=== PATIENT | female | born 1995 | race Caucasian/White ===

== ENCOUNTER 2017-03-27 19:05 | Emergency (ER) | payer OTHER ==
[~2017-03-27] VITALS: Ht 162.6 cm; Wt 60.1 kg
[2017-03-27 19:09] VITALS: TEMP 36.6; Ht 162.6 cm; Wt 60.1 kg
[2017-03-27] MEDS ORDERED: ALBINS PO (19:22)
[2017-03-27] MEDS ORDERED: BUPRTAB51 PO (19:22)
[2017-03-27] MEDS ORDERED: VNTHFA/IN INH ×2 (19:22→19:38)
[2017-03-27] MEDS ORDERED: HYDR1CAP85 PO (19:22)
[2017-03-27] MEDS ORDERED: QVRINH80 PO (19:22)
[2017-03-27] MEDS ORDERED: ALBUTEROL 0.5% NEB SOLN 2.5 MG/0.5 ML VIAL INH STA (19:26)
[2017-03-27] MEDS ORDERED: ALBUTEROL HFA 8 GM INHALER INH ONE ×2 (19:30→20:20)
[2017-03-27] MEDS ORDERED: ALBINS NEB (19:38)
--- NOTE | 2017-03-27 19:40 | EMERGENCY ROOM VISIT NOTE ---
History First contact with patient: 19:15 Chief Complaint: MEDICATION REFILL REQUEST Stated Complaint: ASTHMA ATTACK History of Present Illness The patient is a 21 year old female who presents to the Emergency Room with complaints of shortness of breath and chest tightness. The patient has mild persistent asthma. Unfortunate the patient does not have any more inhalers and nebulizers. Today she feels some tightness in her chest, shortness of breath, wheezing. She denies chest pain, lightheadedness or dizziness, orthopnea or lower extension edema. She has a dry cough. She does not have fevers, chills, night sweats. Her appetite has been good. She is not having any difficulty with bowel movements or with urination. Review of Systems A 10 point review of systems was negative unless stated above. Past Medical/Surgical History Medical Problems: (1) Asthma Family History Patient reports no known family medical history. Social History Smoking Status: Current Every Day Smoker (1 pack per day) Smokeless Tobacco Use: No Alcohol Use: none Drug Use: none Marital Status: single Housing Status: lives with significant other Occupation Status: student Current/Historical Medications Scheduled Albuterol Sulf (Albuterol Sulfate), 3 ML NEB Q6H Bupropion (Wellbutrin-Xl), 300 MG PO DAILY Hydroxyzine Pamoate (Vistaril), 25 MG PO TID Scheduled PRN Albuterol Hfa (Ventolin Hfa), 2-4 PUFFS INH Q6H PRN for Shortness of Breath Albuterol Hfa (Ventolin Hfa), 1-2 PUFFS INH Q4H PRN for Shortness of Breath Albuterol Sulf (Albuterol Sulfate), 3 ML PO Q6 PRN for Shortness of Breath Beclomethasone Dip (Qvar), 1 PUFF PO DAILY PRN for Shortness of Breath Allergies Effexor Physical Exam Vital Signs Date Time Temp Pulse Resp B/P (MAP) Pulse Ox O2 Delivery O2 Flow Rate FiO2 03/27/17 20:58 106 20 123/72 94 03/27/17 19:09 36.6 100 16 116/68 98 Room Air Pain Rating (0-10): 0 Physical Exam Constitutional: Vital signs as above were reviewed. Eyes: Pupils equal, round, and reactive to light. Extraocular muscles are intact. No proptosis. No photophobia. ENT: Mucous membranes are moist. Oropharynx is clear. No sinus tenderness. Cardiovascular: Heart with a regular rate and rhythm. No pedal edema appreciated. Respiratory: And expiratory wheezing in all lung peter No evidence of respiratory distress: No nasal flaring, no intercostal retraction, no sternocleidal retractions Normal oxygen saturation noted GI: Abdomen soft, nontender, nondistended. Normal active bowel sounds. No abdominal hernias appreciated. No rebound. No guarding. : No CVA tenderness appreciated. Musculoskeletal: No midline cervical or vertebral tenderness. No gross deformities. No bony tenderness. No calf swelling or tenderness. Integumentary: Warm, dry, no rashes appreciated. Neurological: Patient awake, alert, and oriented x 3. Lymph: No cervical lymphadenopathy appreciated. Medical Decision & Procedures ED Course 19:15 - The patient was seen and evaluated by Dr. Agustín Ponce MD [facility] 19:30 - Reviewed case with Dr. Pramod Osborne, ER attending physician Will administer 1 albuterol nebulizer treatment and provide Ventolin inhaler 19:40 - Patient declines nebulizers; will provide 2 puffs Albuterol now and re- assess 20:35 - Re-assessed patient; wheezing improved; told patient to take 1 more puff and I would re-assess 21:00 - Patient reassessed and wheezing improved, patient feeling better Discharge home with instructions completed. Patient discharged in stable condition. Medical Decision The patient is a 21-year-old female with history of mild persistent asthma. She presents with a mild exacerbation, and did not have her medications to treat this at home. Her initial evaluation in the ER was generally benign with the exception of end expiratory wheezing which is consistent with a mild asthma exacerbation in the context of her history. The patient was slightly tachycardic, likely due to some mild shortness of breath but was hemodynamic stable and maintained her oxygenation throughout her hospital course. At no point did she have any evidence of respiratory distress. She was treated with 2 puffs of her inhaler, with prompt reassessment afterwards upon which I noted that she had made a good improvement in her air movement. For cautionary purposes, I gave her 1 additional puffs and then reassessed 15 minutes later and continued to note an improvement. I felt it was safe for her to go home and continue her recovery with her home inhaler as well as a renewal on her nebulizers. She is new to the area and I did recommend to her that she needs a primary care provider to monitor and maintain all of her chronic medications. Prior to departure she is given instructions on when to come back to the emergency department. The patient had an unremarkable hospital course, and was discharged in stable condition. Head Trauma GCS Score: 15 Medication Reconcilliation Current Medication List: was personally reviewed by me Blood Pressure Screening Patient's blood pressure: Normal blood pressure Impression Primary Impression: Mild asthma exacerbation Departure Information Dispostion Home / Self-Care Condition GOOD Prescriptions Albuterol Sulf (Albuterol Sulfate) 2.5 Mg/3 Ml Nebu 3 ML NEB Q6H for 10 Days, #20 VIAL Prov: Agustín Ponce MD 03/27/17 Albuterol Hfa (VENTOLIN HFA) 200 Puffs/68914 Mcg Aers 1-2 PUFFS INH Q4H Y for Shortness of Breath for 30 Days, #1 INHALER Prov: Agustín Ponce MD 03/27/17 Referrals No Doctor, Assigned (PCP) Patient Instructions My [facility] Additional Instructions He came to the emergency room because you're having asthma symptoms but did not have here usual inhalers and nebulizers. We gave you a nebulizer treatment and provided you with a Ventolin inhaler to go home with. We will prescribe you an additional Ventolin inhaler, and a small supply of nebulizers. Because you're new to the area, you need to establish care with a primary care provider who can prescribe and monitor your asthma symptoms. If your symptoms fail to improve, acutely worsen, please seek medical attention immediately by either calling your primary care provider or going to your nearest emergency department. Otherwise, please see your primary care provider within 1 week to ensure that your symptoms continue to improve. It was a pleasure to be involved in your care and we wish you all the best.
[2017-03-27 20:58] VITALS: BP 123/72; PULSE 106; O2SAT 94
--- NOTE | 2017-03-27 23:23 | EMERGENCY ROOM VISIT NOTE ---
History Report prepared by Pat: [employer] Under the Supervision of: Dr. Pramod Osborne D.O. First contact with patient: 19:15 Chief Complaint: MEDICATION REFILL REQUEST Stated Complaint: ASTHMA ATTACK History of Present Illness The patient is a 21 year old female who presents to the Emergency Room with complaints of a mild asthma exacerbation that began recently. She has a past medical history of asthma. The patient is new to the area and notes that she does not have a PCP set up yet. She ran out of her medications and is requesting more. She has mild chest tightness which is typical for her asthma, but no shortness of breath. She notes that this is a very mild flare at best. She denies any abdominal pain, nausea, vomiting, diarrhea, or fevers. She notes that she has a mild cough. Source of History: patient Onset: recently Position: other (Respiratory System) Symptom Intensity: mild Quality: other (Asthma exacerbation) Timing: constant Associated Symptoms: + cough, No fevers, No SOB, No nausea, No vomiting, No abdominal pain, No diarrhea Review of Systems See HPI for pertinent positives & negatives. A total of 10 systems reviewed and were otherwise negative. Past Medical & Surgical Medical Problems: (1) Asthma Family History Patient reports no known family medical history. Social History Smoking Status: Current Every Day Smoker Smokeless Tobacco Use: No Alcohol Use: none Drug Use: none Marital Status: in relationship Current/Historical Medications Scheduled Albuterol Sulf (Albuterol Sulfate), 3 ML NEB Q6H Bupropion (Wellbutrin-Xl), 300 MG PO DAILY Hydroxyzine Pamoate (Vistaril), 25 MG PO TID Scheduled PRN Albuterol Hfa (Ventolin Hfa), 2-4 PUFFS INH Q6H PRN for Shortness of Breath Albuterol Hfa (Ventolin Hfa), 1-2 PUFFS INH Q4H PRN for Shortness of Breath Albuterol Sulf (Albuterol Sulfate), 3 ML PO Q6 PRN for Shortness of Breath Beclomethasone Dip (Qvar), 1 PUFF PO DAILY PRN for Shortness of Breath Allergies Coded Allergies: Venlafaxine (Unverified Allergy, Unknown, NAUSEA/FEVER, 03/27/17) Physical Exam Vital Signs Date Time Temp Pulse Resp B/P (MAP) Pulse Ox O2 Delivery O2 Flow Rate FiO2 10/12/17 20:58 106 20 123/72 94 03/27/17 19:09 36.6 100 16 116/68 98 Room Air Physical Exam GENERAL: Sitting up in bed, alert, well appearing, well nourished, no distress, non-toxic, talking in full sentences EYE EXAM: normal conjunctiva OROPHARYNX: no exudate, no erythema, lips, buccal mucosa, and tongue normal and mucous membranes are moist NECK: supple, no nuchal rigidity, no adenopathy, non-tender LUNGS: Wheezing to the bilateral lung peter. Normal chest wall mechanics HEART: no murmurs, S1 normal and S2 normal ABDOMEN: abdomen soft, non-tender, normo-active bowel sounds, no masses, no rebound or guarding. BACK: Back is symmetrical on inspection and there is no deformity, no midline tenderness, no CVA tenderness. SKIN: no rashes and no bruising UPPER EXTREMITIES: upper extremities are grossly normal. LOWER EXTREMITIES: No pitting edema. Calves equal bilaterally. NEURO EXAM: Normal sensorium. Medical Decision & Procedures ED Course ED COURSE: Vital signs were reviewed and showed tachycardia. The patients medical record was reviewed The above diagnostic studies were performed and reviewed. ED treatments and interventions as stated above. 191: The patient was evaluated in room D6. A complete history and physical examination was performed. 2020: Ordered Albuterol 60 puffs INH 2100: Upon reevaluation, the patient is resting. I discussed my findings with the patient and she understands and agrees with the treatment plan. Based on the patients age, coexisting illnesses, exam and lab findings the decision to treat as an outpatient was made. The patient remained stable while under my care. The patient appeared well at the time of discharge. Medical Decision Differential diagnoses includes but is not limited to pneumonia, bronchitis, COPD/Asthma exacerbation, pneumothorax, pulmonary embolism, congestive heart failure, acute coronary syndrome. Patient is a 21-year-old female who presents to ER for medication refill. Patient was seen independently of the resident. Patient was requesting prescription for no treatments along with an inhaler which she ran out. She notes this feels like a very mild asthma exacerbation. She declined that treatment. Patient family wheezing bilaterally. She felt better. The resident following inhaler treatment. She was discharged to follow-up with PCP. Discussed with Pt concerning signs and symptoms to watch out for. Pt was instructed to follow up with their PCP and discussed with the patient their option to return to the ED at anytime for persistent or worsening symptoms. The appropriate anticipatory guidance and out-patient management, including indications for return to the emergency department, were explained at length to the patient and understood. Medication Reconcilliation Current Medication List: was personally reviewed by me Blood Pressure Screening Patient's blood pressure: Normal blood pressure Blood pressure disposition: Did not require urgent referral Impression Primary Impression: Mild asthma exacerbation Scribe Attestation The scribe's documentation has been prepared under my direction and personally reviewed by me in its entirety. I confirm that the note above accurately reflects all work, treatment, procedures, and medical decision making performed by me. Departure Information Dispostion Home / Self-Care Prescriptions Albuterol Sulf (Albuterol Sulfate) 2.5 Mg/3 Ml Nebu 3 ML NEB Q6H for 10 Days, #20 VIAL Prov: Agustín Ponce MD 03/27/17 Albuterol Hfa (VENTOLIN HFA) 200 Puffs/08082 Mcg Aers 1-2 PUFFS INH Q4H Y for Shortness of Breath for 30 Days, #1 INHALER Prov: Agustín Ponce MD 03/27/17 Referrals No Doctor, Assigned (PCP) Forms HOME CARE DOCUMENTATION FORM, IMPORTANT VISIT INFORMATION, WORK / SCHOOL INSTRUCTIONS Patient Instructions ED Asthma Acute Ch, My [facility] Additional Instructions He came to the emergency room because you're having asthma symptoms but did not have here usual inhalers and nebulizers. We provided you with a Ventolin inhaler. We re-assessed you after taking 2 puffs and given your excellent response, we felt you could be discharged safely back home. We will prescribe you an additional Ventolin inhaler, and a small supply of nebulizers. Because you're new to the area, you need to establish care with a primary care provider who can prescribe and monitor your asthma symptoms. If your symptoms fail to improve, acutely worsen, please seek medical attention immediately by either calling your primary care provider or going to your nearest emergency department. Otherwise, please see your primary care provider within 1 week to ensure that your symptoms continue to improve. It was a pleasure to be involved in your care and we wish you all the best.
== END 2017-03-27 21:00 | disposition home or self-care (01) ==
LOC: C.EDB 19:08 → C.EDD 21:00
DX: Z76.0 Encounter for issue of repeat prescription (principal); J45.901 Unspecified asthma with (acute) exacerbation; F17.210 Nicotine dependence, cigarettes, uncomplicated; Z79.899 Other long term (current) drug therapy

== ENCOUNTER → 2017-07-09 | Outpatient (CLI) | payer OTHER ==
[~2017-07-09] MED LIST: ALBINS PO; BUPRTAB51 PO; HYDR1CAP85 PO; QVRINH80 PO; VNTHFA/IN INH
[2017-07-09 16:39] LABS: BASO % 0.1 %; BASO ABS # 0.01 K/uL (0-0.2); EOS % 4.3 %; HEMATOCRIT 34.8 % (37-47); HEMOGLOBIN 12.4 g/dL (12.0-16.0); IG# 0.02 K/uL (0.00-0.02); LYMPH % 21.5 %; LYMPH ABS # 2.01 K/uL (1.2-3.4); MEAN CELL VOLUME 87.4 fL (80-100); MEAN CORPUSCULAR HEMOGLOBIN 31.2 pg (25-34); MEAN CORPUSCULAR HGB CONC 35.6 g/dl (32-36); MEAN PLATELET VOLUME 9.6 fL (7.4-10.4); MONO ABS # 0.37 K/uL (0.11-0.59); NEUT % 69.9 %; NEUT ABS # 6.55 K/uL (1.4-6.5); PLATELET COUNT 278 K/uL (130-400); RED CELL DISTRIBUTION WIDTH CV 12.9 % (11.5-14.5); RED CELL DISTRIBUTION WIDTH SD 41.6 fL (36.4-46.3); WHITE BLOOD COUNT 9.36 K/uL (4.8-10.8)
== END | disposition home or self-care (01) ==
LOC: C.LAB1850 15:23
PROVIDERS: ATTEND Obstetrics & Gynecology
DX: Z34.02 Encounter for supervision of normal first pregnancy, second trimester (principal)

== ENCOUNTER → 2017-07-09 | Outpatient (CLI) | payer OTHER | END | disposition home or self-care (01) | LOC: C.PAPS 09:47 | PROVIDERS: ATTEND Obstetrics & Gynecology | DX: Z34.02 Encounter for supervision of normal first pregnancy, second trimester (principal); Z12.4 Encounter for screening for malignant neoplasm of cervix; R87.610 Atypical squamous cells of undetermined significance on cytologic smear of cervix (ASC-US); Z11.51 Encounter for screening for human papillomavirus (HPV) ==

== ENCOUNTER 2017-08-18 03:46 | Emergency (ER) | payer OTHER ==
[~2017-08-18] VITALS: Ht 162.6 cm; Wt 69.8 kg
[2017-08-18 03:50] VITALS: TEMP 36.3; Ht 162.6 cm; Wt 69.8 kg
[2017-08-18] MEDS ORDERED: SODIUM CHLORIDE 0.9% 1000ML 1,000 ML IV STA (04:04)
[2017-08-18] MEDS ORDERED: ONDANSETRON INJ 2 MG/ML 2 ML VIAL IV STA ×2 (04:04→05:44)
[2017-08-18] MEDS ORDERED: MoRPHine SULFATE 4 MG/ML 1 ML CARP\\VIAL IV STA ×2 (04:04→05:44)
[2017-08-18] MEDS ORDERED: DIPH25CA5 PO (04:30)
[2017-08-18 04:33] LABS: BASO % 0.1 %; BASO ABS # 0.01 K/uL (0-0.2); EOS % 1.2 %; EOS ABS # 0.15 K/uL (0-0.5); HEMATOCRIT 30.6 % (37-47); IG# 0.07 K/uL (0.00-0.02); LYMPH % 12.7 %; LYMPH ABS # 1.54 K/uL (1.2-3.4); MEAN CELL VOLUME 88.2 fL (80-100); MEAN CORPUSCULAR HEMOGLOBIN 31.7 pg (25-34); MEAN CORPUSCULAR HGB CONC 35.9 g/dl (32-36); MEAN PLATELET VOLUME 8.7 fL (7.4-10.4); MONO % 3.2 %; MONO ABS # 0.39 K/uL (0.11-0.59); NEUT % 82.2 %; NEUT ABS # 9.94 K/uL (1.4-6.5); PLATELET COUNT 219 K/uL (130-400); RED CELL DISTRIBUTION WIDTH CV 13.1 % (11.5-14.5); RED CELL DISTRIBUTION WIDTH SD 41.9 fL (36.4-46.3)
[2017-08-18 05:05] LABS: ALBUMIN 3.2 gm/dl (3.4-5.0); ALT/SGPT 17 U/L (12-78); AST/SGOT 9 U/L (15-37); BLOOD UREA NITROGEN 10 mg/dl (7-18); CALCIUM 8.8 mg/dl (8.5-10.1); CARBON DIOXIDE 26 mmol/L (21-32); CREATININE 0.62 mg/dl (0.60-1.20); GLUCOSE 106 mg/dl (70-99); POTASSIUM 3.8 mmol/L (3.5-5.1); SODIUM 139 mmol/L (136-145)
[2017-08-18 05:08] LABS: ALKALINE PHOSPHATASE 65 U/L (45-117); TOTAL PROTEIN 6.6 gm/dl (6.4-8.2)
--- NOTE | 2017-08-18 06:51 | DIAGNOSTIC IMAGING REPORT ---
(RENAL)RETROPERITON COMP HISTORY: 21 years-old Female left flank pain, ? stone acute left-sided flank pain with COMPARISON: Pelvic ultrasound 07/15/2017 TECHNIQUE: Multiple real-time sonographic images of the kidneys and urinary bladder were obtained assessing grayscale appearance and color flow FINDINGS: The right kidney measures 10.5 x 5.1 x 6.3 cm and demonstrates mild hydronephrosis without obstructing calculus or lesion identified. Cortical medullary differentiation is preserved. The lower pole is somewhat visualized secondary to obscuring bowel gas. The left kidney measures 13.0 x 6.8 x 6.3 cm and also demonstrates mild hydronephrosis with multiple shadowing calculi seen about the left kidney, largest of which measures 6 mm within the inferior pole. There is a complex cystic lesion within internal septations involving the interpolar left kidney measuring up to 1.1 x 1.1 x 1.6 cm. Mobile echogenic debris is noted throughout the urinary bladder lumen. Bilateral ureteral jets are seen. Intrauterine gestation is partially imaged with head causing mass effect upon the urinary bladder. The patient is reportedly 22 weeks . IMPRESSION: 1. Intrauterine gestation partially imaged with head causing mass effect upon the urinary bladder. 2. Urinary bladder is diffusely filled with echogenic mobile debris. Correlate with urinalysis to exclude cystitis. 3. Mild bilateral hydronephrosis with multiple nonobstructing calculi seen within the left kidney measuring up to 6 mm. The above report was generated using voice recognition software. It may contain grammatical, syntax or spelling errors. Electronically signed by: Steve Ash M.D. 08/18/2017 6:49 AM Dictated Date/Time: 08/18/2017 6:45 AM
--- NOTE | 2017-08-18 06:53 | EMERGENCY ROOM VISIT NOTE ---
History First contact with patient: 03:56 Chief Complaint: FLANK PAIN Stated Complaint: SEVERE LFT SIDE PAIN,VOMITING,23WKS L&D C History of Present Illness The patient is a 21 year old female who presents to the Emergency Room with complaints of severe sudden onset of left flank pain that radiates to her groin for the past 2 hours that woke her up out of sleep ranging in severity currently 7 out of 10. Nothing makes it better or worse. She took Advil with some improvement of symptoms. She is 23 weeks . She sees edwin [facility]. This is her first . No comp occasions of the . Patient does smoke. No alcohol or drug use. Patient denies chest pain, dyspnea , fever, chills, vomiting, diarrhea, problems, vaginal discharge or bleeding. Patient states she can feel the baby move. Review of Systems An 10 system review of systems was completed with positives and pertinent negatives listed in the HPI. Past Medical/Surgical History Medical Problems: (1) Asthma Kidney stones Family History Patient reports no known family medical history. Social History Smoking Status: Never Smoker Alcohol Use: none Drug Use: none Marital Status: in relationship Housing Status: lives with significant other Current/Historical Medications Scheduled Diphenhydramine Hcl (Benadryl), 25 MG PO DAILY Scheduled PRN Albuterol Hfa (Ventolin Hfa), 2-4 PUFFS INH Q6H PRN for Shortness of Breath Albuterol Sulf (Albuterol Sulfate), 3 ML PO Q6 PRN for Shortness of Breath Physical Exam Vital Signs Date Time Temp Pulse Resp B/P (MAP) Pulse Ox O2 Delivery O2 Flow Rate FiO2 08/18/17 05:46 106 24 128/80 100 Room Air 08/18/17 03:50 36.3 106 20 120/78 97 Room Air Physical Exam VITALS: Vitals are noted on the nurse's note and reviewed by myself. Vital signs stable. GENERAL: Pleasant female, in no acute distress, nondiaphoretic, well-developed well-nourished. SKIN: Capillary reflex less than 2 seconds. HEENT: Normocephalic. PERRLA. EOMI. Nares patent. Mucous membranes moist. Neck is supple without nuchal rigidity. HEART: Regular rate and rhythm without murmurs gallops or rubs. LUNGS: Clear to auscultation bilaterally without wheezes, rales or rhonchi. No retractions or accessory muscle use. ABDOMEN: Positive bowel sounds x 4. Normal tympanic percussion. Soft, 23 weeks , no CVA tenderness, nontender, without masses or organomegaly. Gosnalez sign negative. No guarding or rebound tenderness. MUSCULOSKELETAL: No gross musculoskeletal defects. No pedal edema. No calf tenderness. NEURO: Patient was alert and oriented to person place and time. Normal sensation to light and sharp touch. No focal neurological deficits. Medical Decision & Procedures Laboratory Results 08/18/17 04:20 Red Blood Count 3.47, Mean Corpuscular Volume 88.2, Mean Corpuscular Hemoglobin 31.7, Mean Corpuscular Hemoglobin Concent 35.9, Mean Platelet Volume 8.7, Neutrophils (%) (Auto) 82.2, Lymphocytes (%) (Auto) 12.7, Monocytes (%) (Auto) 3.2, Eosinophils (%) (Auto) 1.2, Basophils (%) (Auto) 0.1, Neutrophils # (Auto) 9.94, Lymphocytes # (Auto) 1.54, Monocytes # (Auto) 0.39, Eosinophils # (Auto) 0.15, Basophils # (Auto) 0.01 08/18/17 04:20 Test 08/18/17 04:20 08/18/17 06:00 White Blood Count 12.10 K/uL (4.8-10.8) Red Blood Count 3.47 M/uL (4.2-5.4) Hemoglobin 11.0 g/dL (12.0-16.0) Hematocrit 30.6 % (37-47) Mean Corpuscular Volume 88.2 fL (80-100) Mean Corpuscular Hemoglobin 31.7 pg (25-34) Mean Corpuscular Hemoglobin Concent 35.9 g/dl (32-36) Platelet Count 219 K/uL (130-400) Mean Platelet Volume 8.7 fL (7.4-10.4) Neutrophils (%) (Auto) 82.2 % Lymphocytes (%) (Auto) 12.7 % Monocytes (%) (Auto) 3.2 % Eosinophils (%) (Auto) 1.2 % Basophils (%) (Auto) 0.1 % Neutrophils # (Auto) 9.94 K/uL (1.4-6.5) Lymphocytes # (Auto) 1.54 K/uL (1.2-3.4) Monocytes # (Auto) 0.39 K/uL (0.11-0.59) Eosinophils # (Auto) 0.15 K/uL (0-0.5) Basophils # (Auto) 0.01 K/uL (0-0.2) RDW Standard Deviation 41.9 fL (36.4-46.3) RDW Coefficient of Variation 13.1 % (11.5-14.5) Immature Granulocyte % (Auto) 0.6 % Immature Granulocyte # (Auto) 0.07 K/uL (0.00-0.02) Anion Gap 7.0 mmol/L (3-11) Est Creatinine Clear Calc Drug Dose 136.5 ml/min Estimated GFR () 148.3 Estimated GFR (Non- 128.0 BUN/Creatinine Ratio 16.0 (10-20) Calcium Level 8.8 mg/dl (8.5-10.1) Total Bilirubin 0.3 mg/dl (0.2-1) Direct Bilirubin < 0.1 mg/dl (0-0.2) Aspartate Amino Transf (AST/SGOT) 9 U/L (15-37) Alanine Aminotransferase (ALT/SGPT) 17 U/L (12-78) Alkaline Phosphatase 65 U/L (45-117) Total Protein 6.6 gm/dl (6.4-8.2) Albumin 3.2 gm/dl (3.4-5.0) Urine Color YELLOW Urine Appearance CLEAR (CLEAR) Urine pH 7.5 (4.5-7.5) Urine Specific [place] 1.006 (1.000-1.030) Urine Protein NEG (NEG) Urine Glucose (UA) NEG (NEG) Urine Ketones NEG (NEG) Urine Occult Blood 1+ (NEG) Urine Nitrite NEG (NEG) Urine Bilirubin NEG (NEG) Urine Urobilinogen NEG (NEG) Urine Leukocyte Esterase NEG (NEG) Urine WBC (Auto) 1-5 /hpf (0-5) Urine RBC (Auto) 0-4 /hpf (0-4) Urine Hyaline Casts (Auto) 1-5 /lpf (0-5) Urine Epithelial Cells (Auto) >30 /lpf (0-5) Urine Bacteria (Auto) NEG (NEG) Medications Administered Medications (Trade) Dose Ordered Sig/Hugo Route Start Time Stop Time Status Last Admin Dose Admin Morphine Sulfate (MoRPHine SULFATE INJ) 4 mg NOW STAT IV 08/18/17 04:04 08/18/17 04:06 DC 08/18/17 04:34 4 MG Ondansetron HCl (Zofran Inj) 4 mg NOW STAT IV 08/18/17 04:04 08/18/17 04:06 DC 08/18/17 04:33 4 MG Sodium Chloride 1,000 ml @ 999 mls/hr Q1H1M STAT IV 08/18/17 04:04 08/18/17 05:04 DC 08/18/17 04:33 999 MLS/HR Morphine Sulfate (MoRPHine SULFATE INJ) 4 mg NOW STAT IV 08/18/17 05:44 08/18/17 05:45 DC 08/18/17 05:50 4 MG Ondansetron HCl (Zofran Inj) 4 mg NOW STAT IV 08/18/17 05:44 08/18/17 05:45 DC 08/18/17 05:50 4 MG ED Course Prior records/ancillary studies reviewed. Triage Nursing notes reviewed. Additional history obtained from the family. The patient's history was concerning for left flank pain who is currently 23 weeks Differential diagnosis: Etiologies such as complication, renal colic, appendicitis, diverticulitis, mesenteric ischemia, aortic pathology, infections, inflammatory bowel disease, PUD, biliary pathology, UTI, as well as others were entertained. Physical examination findings: As above. ER treatment provided: Morphine, Zofran, IV fluids On reassessment the patient felt better. Diagnostic interpretation by me: The labs revealed mild leukocytosis. Urinalysis revealed no concerns for infection First urinalysis appeared contaminated so a cath urine was done Imaging studies: US RENAL: Additional history, 22 WKS PREG PER PT. Mild bilateral hydronephrosis. Multiple left renal calculi. Largest 6 mm in the left lower pole. Complex left renal cyst, 1.6 cm. No obvious distal ureteral calculus visualized. Normal ureteral jets visualized bilaterally. Mobile debris within the urinary bladder. Correlate for infection. Radiologist: Maximo Michelle M.D. Consultation: A consultation was placed with the OB, Dr Parr. The case was discussed and diagnostics were reviewed. He recommends discharge with outpatient follow-up and states no need for monitoring. It appears that the patient has left flank pain with unclear etiology. Patient had no real blood on cath urinalysis. Ultrasound showed no obvious signs of obstructing stone. Patient had no complaints with her . Patient had normal movement on limited ultrasound in the ER per my interpretation. Patient had normal heart tones. Patient had no vaginal bleeding or concerns with her . Patient was advised to take the medicines as directed, rest, stay well-hydrated to follow-up with OB in a day or 2 here in the ER sooner for abdominal pain, fevers, vomiting, worsening signs or symptoms or as needed. By the evaluation outlined above emergent etiologies such as appendicitis, diverticulitis, mesenteric ischemia, aortic pathology, inflammatory bowel disease, PUD, biliary pathology, as well as others were deemed relatively unlikely. The pt informed about the findings as listed above. All questions were answered and pleased with the treatment. Return instructions were outlined and the patient was discharged in stable condition. Referral: The patient was referred back to their EMT DISPATCHER and primary care physician for follow-up in 2 to 3 days for a recheck of the current condition. Case reviewed with my attending The chart was completed utilizing [employer] Speech voice recognition software. Grammatical errors, random word insertions, pronoun errors, and incomplete sentences are an occassional consequence of this system due to software limitations, ambient noise, and hardware issues. Any formal questions or concerns about the content, text, or information contained within the body of this dictation should be directly addressed to the physician plant attendant or assistant operator for clarification. Medical Decision As above Medication Reconcilliation Current Medication List: was personally reviewed by me Blood Pressure Screening Patient's blood pressure: Normal blood pressure Impression Primary Impression: Left flank pain Departure Information Dispostion Home / Self-Care Condition GOOD Referrals No Doctor, Assigned (PCP) Patient Instructions My [facility] Additional Instructions DO NOT drive, drink alcohol, operate machinery, or perform dangerous activities today. You were given medications in the ER that can affect your ability to safely function or operate a vehicle. Zofran 4 mg: Take one every six hours as needed for nausea. Avoid alcohol, operating machinery or dangerous equipment, working on ladders or roofs, DRIVING , or situations where being under the influence may be dangerous. Acetaminophen(Tylenol) may be used for fever or pain. Use 1000mg every six hours as needed. Avoid using more than 3000mg in a 24 hour period. Rest and drink plenty of fluids as tolerated. Slow sips of water or sports drinks are recommended instead of large amounts all at once. Continue current medications. Once your stomach is settled start with a clear liquid diet (jello, soup broth, etc.) and then advance as tolerated. You should avoid full, heavy meals for about 24 hrs from the time your symptoms resolved. Return to the ER immediately for worsening or persistent abdominal/back pain, problems with your , vomiting, fevers, worsening of your condition, or as needed. Follow up with your primary physician and/or EMT DISPATCHER within 1-2 days for a recheck of the current condition.
[2017-08-18] MEDS ORDERED: ONDANSETRON HOME PACK 4MG OD TAB PO ONE (07:00)
[2017-08-18 07:05] VITALS: BP 140/67; PULSE 84; O2SAT 98
== END 2017-08-18 07:12 | disposition home or self-care (01) ==
LOC: C.EDB 03:47
DX: R10.9 Unspecified abdominal pain (principal); O26.892 Other specified pregnancy related conditions, second trimester; O99.512 Diseases of the respiratory system complicating pregnancy, second trimester; J45.909 Unspecified asthma, uncomplicated; Z3A.23 23 weeks gestation of pregnancy; Z87.442 Personal history of urinary calculi

== ENCOUNTER 2017-09-06 20:48 | Emergency (ER) | payer OTHER ==
[~2017-09-06] VITALS: Ht 162.6 cm; Wt 71.3 kg
[~2017-09-06 20:48] MED LIST changes: -BUPRTAB51 PO; +DIPH25CA5 PO; -HYDR1CAP85 PO; -QVRINH80 PO
[2017-09-06 20:52] VITALS: TEMP 36.7; Ht 162.6 cm; Wt 71.3 kg
[2017-09-06] MEDS ORDERED: SODIUM CHLORIDE 0.9% 1000ML 1,000 ML IV STA (21:04)
[2017-09-06 21:28] LABS: BASO % 0.1 %; BASO ABS # 0.01 K/uL (0-0.2); EOS % 2.3 %; EOS ABS # 0.28 K/uL (0-0.5); HEMATOCRIT 29.8 % (37-47); HEMOGLOBIN 10.5 g/dL (12.0-16.0); IG# 0.02 K/uL (0.00-0.02); LYMPH % 12.1 %; LYMPH ABS # 1.49 K/uL (1.2-3.4); MEAN CELL VOLUME 89.2 fL (80-100); MEAN CORPUSCULAR HEMOGLOBIN 31.4 pg (25-34); MEAN CORPUSCULAR HGB CONC 35.2 g/dl (32-36); MEAN PLATELET VOLUME 8.6 fL (7.4-10.4); MONO ABS # 0.74 K/uL (0.11-0.59); NEUT % 79.3 %; NEUT ABS # 9.81 K/uL (1.4-6.5); PLATELET COUNT 257 K/uL (130-400); RED CELL DISTRIBUTION WIDTH CV 12.9 % (11.5-14.5); RED CELL DISTRIBUTION WIDTH SD 41.6 fL (36.4-46.3); WHITE BLOOD COUNT 12.35 K/uL (4.8-10.8)
[2017-09-06] MEDS ORDERED: FLUT1INH INH (21:29)
[2017-09-06] MEDS ORDERED: TAMS0.4C38 PO (21:29)
[2017-09-06 21:59] LABS: ALBUMIN 3.1 gm/dl (3.4-5.0); ALT/SGPT 23 U/L (12-78); BLOOD UREA NITROGEN 12 mg/dl (7-18); CALCIUM 8.6 mg/dl (8.5-10.1); CARBON DIOXIDE 24 mmol/L (21-32); CREATININE 0.86 mg/dl (0.60-1.20); GLUCOSE 91 mg/dl (70-99); LIPASE 114 U/L (73-393); POTASSIUM 3.6 mmol/L (3.5-5.1); SODIUM 137 mmol/L (136-145)
--- NOTE | 2017-09-06 22:00 | DIAGNOSTIC IMAGING REPORT ---
(RENAL)RETROPERITON COMP HISTORY: eval for hydro COMPARISON: 08/18/2017 FINDINGS: Right kidney: Maximum dimension 12.4 cm. Mild hydronephrosis. No change in the prior study. Normal corticomedullary differentiation and cortical thickness. Left kidney: Moderate hydronephrosis. Maximum dimension 15 cm. 1.9 cm septated cyst upper pole. 5 mm nonobstructing mid pole calcification. Normal corticomedullary differentiation and cortical thickness. Bladder: No bladder wall thickening. The bilateral ureteral jets were identified. IMPRESSION: 1. Moderate left hydronephrosis. 2. Mild right hydronephrosis. 3. Nonobstructing calcification mid pole left kidney with an unchanging interpolar cyst. 4. No change from the prior study. The above report was generated using voice recognition software. It may contain grammatical, syntax or spelling errors. Electronically signed by: Yuriy Joe M.D. 09/06/2017 9:58 PM Dictated Date/Time: 09/06/2017 9:56 PM
[2017-09-06 22:02] LABS: ALKALINE PHOSPHATASE 82 U/L (45-117); AST/SGOT 12 U/L (15-37); TOTAL PROTEIN 6.8 gm/dl (6.4-8.2)
[2017-09-06] MEDS ORDERED: MoRPHine SULFATE 4 MG/ML 1 ML CARP\\VIAL IV STA (22:05)
[2017-09-06] MEDS ORDERED: CEFTRIAXONE SOD INJ 1 GM ADDVIAL IV STA (23:03)
[2017-09-06] MEDS ORDERED: LACTATED RINGER'S 1000ML 1,000 ML IV SCH (23:41)
[2017-09-06] MEDS ORDERED: IV FLUIDS COMPLETED PRN (23:45)
[2017-09-06] MEDS ORDERED: DiphenhydrAMINE HCL 50 MG/ML VIAL IV STA (23:51)
[2017-09-07] MEDS ORDERED: OXYCODONE/ACETAMINOPHEN 5-325 TAB PO PRN
[2017-09-07] MEDS ORDERED: CEFTRIAXONE SOD INJ 1 GM in DEXTROSE 5% ADD-VANTAGE 50ML 50 ML IV SCH ×2
[2017-09-07] MEDS ORDERED: ONDANSETRON INJ 2 MG/ML 2 ML VIAL IV PRN
[2017-09-07] MEDS ORDERED: CEPH500C PO (00:01)
[2017-09-07 00:12] VITALS: BP 133/95; PULSE 112; O2SAT 98
[2017-09-07] MEDS ORDERED: CEPHALEXIN 500MG HOME PACK 1 EA BTL PO ONE (00:15)
--- NOTE | 2017-09-07 00:44 | EMERGENCY ROOM VISIT NOTE ---
History Report prepared by Pat: Davonte Rodas Under the Supervision of: Dr. Adolph Holloway M.D. First contact with patient: 20:56 Chief Complaint: KIDNEY STONE Stated Complaint: BURNING W/URINATION,BACK PAIN- HX KIDNEY STONE History of Present Illness The patient is a 21 year old female who is 26-weeks who presents to the Emergency Room with complaints of worsening left flank pain that started almost 3 weeks ago. She states that she was here on the of this month for the same left flank pain. The patient says that she then went to [facility] in [place] around 2 weeks ago and had a urology consult, and had an ultrasound which showed stones in both kidneys. The patient states that she was not admitted at [place]. She states that she was given Flomax, and was put on Hydrocodone and amoxicillin 800 mg. The patient says that she did not start taking the antibiotics until yesterday when she developed urinary symptoms. She adds that she was told that she had a lot of bacteria in her urine, but she did not feel any symptoms of a UTI at that time. The patient says that her left flank pain calmed down a bit ever since being in [place], but starting this morning the pain came back and has worsened. She describes the pain as a throbbing and aching. The patient adds that starting yesterday, she has been experiencing an increased urgency and frequency of urination, as well as burning with urination. She notes that she had been vomiting when she was seen here earlier this month, but started vomiting a lot last week. The patient says that she has not felt feverish. She denies any vaginal bleeding or problems with her baby. She does feel the baby move. Source of History: patient Onset: Almost 3 weeks ago Position: other (left flank) Quality: ache, other (throbbing) Timing: worsening Associated Symptoms: + vomiting, + urinary symptoms, No fevers Note: Associated symptoms: Denies vaginal discharge, problems with baby. Review of Systems See HPI for pertinent positives & negatives. A total of 10 systems reviewed and were otherwise negative. Past Medical & Surgical Medical Problems: (1) Asthma (2) Kidney stone complicating Family History Patient reports no known family medical history. Social History Smoking Status: Current Every Day Smoker Alcohol Use: none Drug Use: none Marital Status: in relationship Housing Status: lives with significant other Current/Historical Medications Scheduled Cephalexin Monohydrate (Keflex), 500 MG PO QID Diphenhydramine Hcl (Benadryl), 25 MG PO DAILY Fluticasone Furoate-Vilanterol (Breo Ellipta), 1 PUFF INH DAILY Tamsulosin Hcl (Flomax), 1 CAP PO DAILY Scheduled PRN Albuterol Hfa (Ventolin Hfa), 2-4 PUFFS INH Q6H PRN for Shortness of Breath Albuterol Sulf (Albuterol Sulfate), 3 ML PO Q6 PRN for Shortness of Breath Allergies Coded Allergies: Venlafaxine (Verified Allergy, Intermediate, NAUSEA/FEVER, 09/06/17) Physical Exam Vital Signs Date Time Temp Pulse Resp B/P (MAP) Pulse Ox O2 Delivery O2 Flow Rate FiO2 09/06/17 22:24 115 132/75 98 Room Air 09/06/17 20:52 36.7 134 20 123/73 99 Room Air Physical Exam Constitutional: Vital signs reviewed. Eyes: Pupils are equal round reactive to light. Conjunctiva are noninjected. ENT: Pharynx is clear without erythema or exudate. Mucous membranes are dry. Neck supple without meningeal signs. Respiratory: Clear to auscultation bilaterally. Breath sounds are equal bilaterally. Cardiovascular: Regular rate and rhythm. No rubs or gallops. GI: Gravid and nontender. Bowel sounds are present. Musculoskeletal: No peripheral edema. No CVA tenderness. Integumentary: No cyanosis. Neurological: The patient is awake and alert. No focal deficits. Psychiatric: Normal affect. Medical Decision & Procedures ER Provider Diagnostic Interpretation: US results as stated below per my review and radiologist interpretation. (RENAL)RETROPERITON COMP HISTORY: eval for hydro COMPARISON: 08/18/2017 FINDINGS: Right kidney: Maximum dimension 12.4 cm. Mild hydronephrosis. No change in the prior study. Normal corticomedullary differentiation and cortical thickness. Left kidney: Moderate hydronephrosis. Maximum dimension 15 cm. 1.9 cm septated cyst upper pole. 5 mm nonobstructing mid pole calcification. Normal corticomedullary differentiation and cortical thickness. Bladder: No bladder wall thickening. The bilateral ureteral jets were identified. IMPRESSION: 1. Moderate left hydronephrosis. 2. Mild right hydronephrosis. 3. Nonobstructing calcification mid pole left kidney with an unchanging interpolar cyst. 4. No change from the prior study. Laboratory Results 09/06/17 21:20 Red Blood Count 3.34, Mean Corpuscular Volume 89.2, Mean Corpuscular Hemoglobin 31.4, Mean Corpuscular Hemoglobin Concent 35.2, Mean Platelet Volume 8.6, Neutrophils (%) (Auto) 79.3, Lymphocytes (%) (Auto) 12.1, Monocytes (%) (Auto) 6.0, Eosinophils (%) (Auto) 2.3, Basophils (%) (Auto) 0.1, Neutrophils # (Auto) 9.81, Lymphocytes # (Auto) 1.49, Monocytes # (Auto) 0.74, Eosinophils # (Auto) 0.28, Basophils # (Auto) 0.01 09/06/17 21:20 Test 09/06/17 21:20 White Blood Count 12.35 K/uL (4.8-10.8) Red Blood Count 3.34 M/uL (4.2-5.4) Hemoglobin 10.5 g/dL (12.0-16.0) Hematocrit 29.8 % (37-47) Mean Corpuscular Volume 89.2 fL (80-100) Mean Corpuscular Hemoglobin 31.4 pg (25-34) Mean Corpuscular Hemoglobin Concent 35.2 g/dl (32-36) Platelet Count 257 K/uL (130-400) Mean Platelet Volume 8.6 fL (7.4-10.4) Neutrophils (%) (Auto) 79.3 % Lymphocytes (%) (Auto) 12.1 % Monocytes (%) (Auto) 6.0 % Eosinophils (%) (Auto) 2.3 % Basophils (%) (Auto) 0.1 % Neutrophils # (Auto) 9.81 K/uL (1.4-6.5) Lymphocytes # (Auto) 1.49 K/uL (1.2-3.4) Monocytes # (Auto) 0.74 K/uL (0.11-0.59) Eosinophils # (Auto) 0.28 K/uL (0-0.5) Basophils # (Auto) 0.01 K/uL (0-0.2) RDW Standard Deviation 41.6 fL (36.4-46.3) RDW Coefficient of Variation 12.9 % (11.5-14.5) Immature Granulocyte % (Auto) 0.2 % Immature Granulocyte # (Auto) 0.02 K/uL (0.00-0.02) Urine Color YELLOW Urine Appearance TURBID (CLEAR) Urine pH 8.0 (4.5-7.5) Urine Specific [place] 1.020 (1.000-1.030) Urine Protein NEG (NEG) Urine Glucose (UA) NEG (NEG) Urine Ketones NEG (NEG) Urine Occult Blood NEG (NEG) Urine Nitrite NEG (NEG) Urine Bilirubin NEG (NEG) Urine Urobilinogen NEG (NEG) Urine Leukocyte Esterase SMALL (NEG) Urine WBC (Auto) >30 /hpf (0-5) Urine RBC (Auto) 0-4 /hpf (0-4) Urine Hyaline Casts (Auto) 5-10 /lpf (0-5) Urine Epithelial Cells (Auto) >30 /lpf (0-5) Urine Bacteria (Auto) NEG (NEG) Urine Renal Epithelial Cells 0-5 /lpf (0-5) Urine Crystals CALCIUM OXALATE (NONE Anion Gap 6.0 mmol/L (3-11) Est Creatinine Clear Calc Drug Dose 99.4 ml/min Estimated GFR () 111.1 Estimated GFR (Non- 95.9 BUN/Creatinine Ratio 14.3 (10-20) Calcium Level 8.6 mg/dl (8.5-10.1) Total Bilirubin 0.2 mg/dl (0.2-1) Direct Bilirubin < 0.1 mg/dl (0-0.2) Aspartate Amino Transf (AST/SGOT) 12 U/L (15-37) Alanine Aminotransferase (ALT/SGPT) 23 U/L (12-78) Alkaline Phosphatase 82 U/L (45-117) Total Protein 6.8 gm/dl (6.4-8.2) Albumin 3.1 gm/dl (3.4-5.0) Lipase 114 U/L (73-393) Laboratory results as reviewed by me. Medications Administered Medications (Trade) Dose Ordered Sig/Hugo Route Start Time Stop Time Status Last Admin Dose Admin Sodium Chloride 1,000 ml @ 999 mls/hr Q1H1M STAT IV 09/06/17 21:04 09/06/17 22:04 DC 09/06/17 21:22 999 MLS/HR Morphine Sulfate (MoRPHine SULFATE INJ) 4 mg NOW STAT IV 09/06/17 22:05 09/06/17 22:06 DC 09/06/17 22:10 4 MG Ceftriaxone Sodium (Rocephin Inj) 1 gm NOW STAT IV 09/06/17 23:03 09/06/17 23:04 DC 09/06/17 23:09 1 GM Cephalexin Monohydrate (Keflex 500MG Home Pack) 1 homepack NOW ONCE PO 09/07/17 00:15 09/07/17 00:16 DC 09/07/17 00:11 1 HOMEPACK ED Course 2056: The patient was evaluated in room C8. A complete history and physical exam was performed. 2103: NSS 1000 ml @ 999 mls/hr IV. 2203: The patient is requesting pain medicine. 5: Morphine Sulfate Inj 4 mg IV. 2255: I reevaluated the patient and she is feeling better now. 2300: I discussed the patient with Dr[facility] - he said he agrees with admission here and conservative management with IV antibiotics and fluids. 2303: Rocephin Inj 1 gm IV. 2304: I reevaluated the patient and she is resting. I discussed the results with her. 2311: I spoke with Dr. Dafne Hernández [facility] resident rate examiner. We discussed the patient and her results. The patient will be further evaluated by Anabella Chappell. 2334: I discussed the patient with Dr. Shiva Hernández [facility] OBGYN - she will evaluate the patient for further treatment. 2345: I reevaluated the patient and she is having a panic attack. She has concern about staying in the hospital by herself, so I had a long discussion with her and her boyfriend, and discussed the risks of leaving against medical advice. Her boyfriend is trying to convince her to stay. 2351: Benadryl Inj 25 mg IV. 2357: I reevaluated the patient and she will leave against medical advice. She understands the risks to herself as well as the baby. Dr. Shannon recommended Keflex as an outpatient antibiotic. She looked at some data showing equivalence with Rocephin in terms of treatment. 0001: Cephalexin 500MG Home Pack 1 homepack PO. Medical Decision This is a 21-year-old female who presents with flank pain and urinary symptoms. Differential diagnosis includes obstructive uropathy, renal colic, UTI, pyelonephritis, dehydration. I did perform a limited focused review of portions of the patient's old chart on the electronic medical record. The patient came in with left flank pain on the , and was 23 weeks at the time. She had an ultrasound which showed bilateral mild hydronephrosis and a left renal calculus. No ureteral calculi were noted. The urine culture from August 18 did not show any specific organisms. I did evaluate the patient as noted above. IV access was established. I did treat the patient with normal saline IV. Initially she did not wish to have any pain medication but later requested some and was given morphine IV. I did order and personally review the patient's urinalysis as described above. She does have evidence of a UTI. She was given ceftriaxone 1 g IV. I also sent a urine culture. I did order and review the patient's blood work as noted in the electronic medical record. Her white blood cell count is elevated. Kidney function is unremarkable. I did order an ultrasound of the kidneys. I did review the images myself as well as the radiology report as described above. She does have moderate hydronephrosis of the left kidney compared to mild from her last ultrasound on the . I did discuss the test results with the patient. I did recommend hospitalization due to her UTI with an obstructing kidney stone with hydronephrosis. She did agree to the hospitalization. I did speak to Dr. Shearer of urology who recommended pain management, fluids and IV antibiotics. He did not feel any surgical intervention was needed currently. I did speak to the medical service who requested that the patient be admitted by the obstetric service. I did speak to Dr. Shannon who did agree to admit the patient. The nurse called me back into the room because the patient was refusing to stay in the hospital. I did have a long discussion with several re- evaluations with the patient and her boyfriend. The patient was very upset and was not willing to stay in the hospital. She explained that it was the isolation of being in the hospital that upset her. I did talk to her about the risks of leaving including worsening infection, sepsis, , permanent disability, loss of her fetus or defects. She and her boyfriend understood my concerns but she was still unwilling to stay. She was very anxious. I did offer anxiety medications but she still stated that she could not stay in the hospital. I did speak to Dr. Shannon who recommended that patient be discharged on Keflex. I made every effort to convince the patient to stay but she was adamant about leaving. The patient was signed out AGAINST MEDICAL ADVICE. I did remind her and her boyfriend that should she change her mind at any time she should not hesitate to come back. Medication Reconcilliation Current Medication List: was personally reviewed by me Blood Pressure Screening Patient's blood pressure: Normal blood pressure Consults Time Called: 2254 Consulting Physician: Dr. Manfred MOSHER urology Returned Call: [phone] I discussed the patient with Dr. Manfred MOSHER urology - he said he agrees with admission here and conservative management with IV antibiotics and fluids. Additional Consults: Time Called: 2306 Consulted Physician: Dr. Dafne MOSHER resident rate examiner Returned Call: [phone] Additional Comments: I spoke with Dr. Dafne MOSHER resident rate examiner. We discussed the patient and her results. The patient will be further evaluated by [facility]. Time Called: 2329 Consulted Physician: Dr. Shiva MOSHER OBGYChung Returned Call: Additional Comments: I discussed the patient with Dr. Shiva LOPES - she will evaluate the patient for further treatment. Impression Primary Impression: Obstructive uropathy Additional Impressions: Renal colic UTI (urinary tract infection) Second trimester Left against medical advice Scribe Attestation The scribe's documentation has been prepared under my direct and personally reviewed by me in its entirety. I confirm that the note above accurately reflects all work, treatment, procedures, and medical decision making performed by me. Departure Information Dispostion Against Medical Advice Prescriptions Cephalexin Monohydrate (Keflex) 500 Mg Cap 500 MG PO QID for 10 Days, #40 CAP Prov: Adolph Holloway M.D. 09/07/17 Referrals No Doctor, Assigned (PCP) Patient Instructions My [facility] Additional Instructions You are leaving the hospital AGAINST MEDICAL ADVICE. By doing so you risk or permanent mental or physical handicap or loss of your unborn baby or defects. You may also develop chronic pain, infertility (loss of the ability to have children permanently ), or other unforeseen negative consequences. You are declining hospitalization. Follow up as soon as possible with your physician. You may return at any time if you change your mind or if you develop worsening symptoms or any new concerning symptoms. Problem Qualifiers Additional Impressions: UTI (urinary tract infection) Urinary tract infection type: site unspecified Hematuria presence: without hematuria Qualified Codes: N39.0 - Urinary tract infection, site not specified
== END 2017-09-07 00:14 | disposition left against medical advice (07) ==
LOC: C.EDB 20:49 → C.EDC 09-07 00:14
DX: O23.92 Unspecified genitourinary tract infection in pregnancy, second trimester (principal); N13.9 Obstructive and reflux uropathy, unspecified; N23 Unspecified renal colic; O99.512 Diseases of the respiratory system complicating pregnancy, second trimester; J45.909 Unspecified asthma, uncomplicated; Z87.442 Personal history of urinary calculi; O99.332 Smoking (tobacco) complicating pregnancy, second trimester; F17.210 Nicotine dependence, cigarettes, uncomplicated; Z3A.26 26 weeks gestation of pregnancy

== ENCOUNTER → 2017-11-04 | Outpatient (CLI) | payer OTHER ==
[~2017-11-04] MED LIST changes: +FLUT1INH INH; +TAMS0.4C38 PO
[2017-11-04 17:34] LABS: HEMATOCRIT 28.9 % (37-47); HEMOGLOBIN 10.1 g/dL (12.0-16.0)
== END | disposition home or self-care (01) ==
LOC: C.LAB1850 15:09
PROVIDERS: ATTEND Obstetrics & Gynecology
DX: Z34.03 Encounter for supervision of normal first pregnancy, third trimester (principal)